=== PATIENT | female | born 1980 ===

== ENCOUNTER 2017-09-29 12:13 | Day surgery (SDC) | payer OTHER ==
[~2017-09-29 12:13] MED LIST: Buffered Lidocaine 0.9% SYRIN* 5 ML/SYR SYRINGE INTRADERM ONE; Buffered Lidocaine 0.9% SYRIN* 5 ML/SYR SYRINGE ONE; Famotidine IV* 10 MG/ML 2 ML (20 mg) IV ONE; Famotidine IV* 10 MG/ML 2 ML (20 mg) ONE; Metoclopramide TAB* 10 MG ONE; Metoclopramide TAB* 10 MG PO ONE
[2017-09-29] MEDS ORDERED: Propofol* 10 MG/ML 20 ML BTL IV PUSH ONE (12:46)
[2017-09-29] MEDS ORDERED: fentaNYL* 50 MCG/ML 2 ML VIAL (100 MCG VIAL) ONE (12:46)
[2017-09-29] MEDS ORDERED: Midazolam* 1 MG/ML 10 ML VIAL (10 MG) ONE (12:46)
[2017-09-29] MEDS ORDERED: Lidocaine 2% PF * 5 ML VIAL ONE (12:46)
[2017-09-29] MEDS ORDERED: Ondansetron INJ* 2 MG/ML VIAL ONE (12:46)
[2017-09-29] MEDS ORDERED: Naloxone* 0.4 MG/ML 1 ML VIAL IV PRN (13:01)
[2017-09-29] MEDS ORDERED: Ondansetron INJ* 2 MG/ML VIAL IV PRN (13:01)
[2017-09-29] MEDS ORDERED: fentaNYL* 50 MCG/ML 2 ML VIAL (100 MCG VIAL) IV PRN (13:01)
[2017-09-29 15:02] VITALS: BP 104/74
--- NOTE | 2017-09-30 14:52 | PRO ---
GASTROENTEROLOGY PROCEDURE NOTE: DATE OF PROCEDURE: 09/29/17 PROCEDURE: Colonoscopy to cecum. PREOPERATIVE DIAGNOSIS: A 37-year-old female with an early and first degree family history of colon cancer in her mother who was diagnosed at age 46, was recently noted to have guaiac positive stool. The patient denies any change in bowel habits or rectal bleeding. She did undergo a normal colonosco py in July 2015. POSTOPERATIVE DIAGNOSES: 1. Normal appearing colonic mucosa from the rectum to the cecum without evidence of mass or polyp. 2. Prominent internal hemorrhoids. MEDICATIONS: Per Anesthesia, include propofol and fentanyl. INSTRUMENT: PCF-190 Olympus variable high-definition pediatric colonoscope. PROCEDURE IN DETAIL: Informed consent was obtained prior to performing this procedure. The instrume nt was introduced into the anus and passed through the rectum under direct visualization. The instru ment was then advanced up to the cecum. The cecum was confirmed by visualization of the appendiceal orifice, ileocecal valve and trifolds of the cecum. The colonoscope was slowly withdrawn. The prepar ation was excellent. Mucosa throughout the cecum, ascending colon, transverse colon, descending colo n, sigmoid colon and rectum was normal. No mass or polyps were visualized. Internal hemorrhoids wer e seen in the rectum. The instrument was withdrawn from the patient. Digital rectal exam was normal . The patient tolerated the procedure well and there were no complications. RECOMMENDATIONS: I would recommend followup colonoscopy in 5 years. [id number]/[facility] #: [id number]
== END 2017-09-29 15:32 | disposition home or self-care (01) ==
LOC: OR 12:13
PROVIDERS: ATTEND Internal Medicine
DX: R19.5 Other fecal abnormalities (principal); R10.32 Left lower quadrant pain; Z80.0 Family history of malignant neoplasm of digestive organs; K64.8 Other hemorrhoids
CPT/HCPCS: 81025; A9270-GY; J2250; J2405; J2704; J3010